=== PATIENT | female | born 2005 | race African-American/Black ===

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

== ENCOUNTER 2025-08-20 17:09 | Emergency (ER) | payer OTHER ==
[2025-08-20 17:15] VITALS: BP 115/80; PULSE 80; RESP 20; TEMP 98.1; BMI 28.8
[2025-08-20] MEDS ORDERED: KETOROLAC TROMETHAMINE 30 MG/1 ML VIAL ONE (19:40)
[2025-08-20] MEDS: KETOROLAC TROMETHAMINE 30 MG/1 ML VIAL IM ONE (19:44)
== END 2025-08-20 19:52 | disposition home or self-care (01) ==
LOC: JERFT 17:09
PROC: 3E0233Z Introduction of Anti-inflammatory into Muscle, Percutaneous Approach (ICD-10-PCS; principal; 2025-08-20)
DX: M54.50 Low back pain, unspecified (principal); M54.6 Pain in thoracic spine; V87.7XXA Person injured in collision between other specified motor vehicles (traffic), initial encounter; Y92.410 Unspecified street and highway as the place of occurrence of the external cause
CPT/HCPCS: 72070-TC-FY; 72100-TC-FY; 99284-25